=== PATIENT | male | born 1965 | race Hispanic/Latino ===

== ENCOUNTER 2017-08-09 10:59 | Outpatient (CLI) | payer BC ==
[2017-08-09] MEDS ORDERED: Iopamidol 370 76% 100 ML VIAL ONE (11:35)
--- NOTE | 2017-08-09 14:18 | CT ---
PRE AND POST CONTRAST ENHANCED CT IMAGES OF THE ABDOMEN AND PELVIS: HISTORY: Hematuria. TECHNIQUE: Pre and post contrast enhanced CT images of the abdomen and pelvis are obtained. FINDINGS: The lung bases are unremarkable. No evidence of free intraperitoneal air is seen. No evidence of renal calculi are seen. No evidence of hydroureteronephrosis is seen. The right and left collecting systems are unremarkable. Both ureters are unremarkable, without evide nce of obvious obstruction. The bladder is unremarkable. The renal parenchyma on the left is unremarkable. A cortical cyst is seen in the mid pole of the rig ht kidney, in a right parapelvic region. No evidence of periaortic lymphadenopathy is seen. No dilated loops of small bowel seen. The colon is unremarkable. IMPRESSION: Small right peripelvic renal cyst; otherwise unremarkable CT abdomen and pelvis. POS: OFF
== END 2017-08-09 11:00 | disposition home or self-care (01) ==
LOC: CT 10:59
PROVIDERS: ATTEND Urology
DX: Z12.5 Encounter for screening for malignant neoplasm of prostate (principal); N40.1 Benign prostatic hyperplasia with lower urinary tract symptoms; M54.5 Low back pain; N28.1 Cyst of kidney, acquired
CPT/HCPCS: 74178